=== PATIENT | male | born 1935 ===

== ENCOUNTER 2016-08-30 21:22 | Emergency (ER) | payer MEDICARE, OTHER ==
[2016-08-30 21:58] VITALS: BP 128/55
--- NOTE | 2016-08-31 00:11 | EDM.PDOC ---
ED HPI GENERAL MEDICAL PROBLEM - General Chief Complaint: Head Injury Stated Complaint: FELL HIT HEAD Time Seen by Provider: 08/30/16 21:22 Source of Information: Reports: Patient, Family History Limitations: Reports: No Limitations - History of Present Illness Onset: Today Onset Date: 08/30/16 Onset Time: 17:30 Duration: Constant Location: Reports: Head, Generalized Quality: Reports: Other (Has worsening balance and a headache from passing out and hitting back of head.) Severity: Moderate Improves with: Reports: None Worsens with: Reports: None Context: Reports: Trauma Associated Symptoms: Reports: Syncope - Related Data Allergies Allergy/AdvReac Type Severity Reaction Status Date / Time piperacillin [From Zosyn] Allergy Other Verified 08/30/16 21:44 sulfamethoxazole Allergy Other Verified 08/30/16 21:44 [From Bactrim] tazobactam [From Zosyn] Allergy Other Verified 08/30/16 21:44 trimethoprim [From Bactrim] Allergy Other Verified 08/30/16 21:44 Home Meds: Home Meds Acetaminophen 2 tab PO DAILY PRN 08/30/16 [History] Aspirin 81 mg PO DAILY 08/30/16 [History] Calcium Carbonate/Vitamin D3 [Calcium 500 + Vit D Caplet] 1 tab PO DAILY [History] Ferrous Sulfate 325 mg PO DAILY 08/30/16 [History] Gabapentin [Neurontin] 100 mg PO BID 08/30/16 [History] Insulin Aspart [Novolog Flexpen] 12 units SUBCUT TID 08/30/16 [History] Insulin Glarg,Human.Rec.Analog [LantUS Solostar] 70 unit SUBCUT DAILY 08/30/16 [ History] Metoprolol Tartrate 100 mg PO BID 08/30/16 [History] Simvastatin [Zocor] 40 mg PO DAILY 08/30/16 [History] metFORMIN [Glucophage] 1,000 mg PO BIDMEALS 08/30/16 [History] oxyCODONE 5 mg PO Q4H 08/30/16 [History] Past Medical History HEENT History: Reports: Hard of Hearing, Impaired Vision Cardiovascular History: Reports: High Cholesterol, Hypertension Respiratory History: Reports: Pneumonia, Recurrent Endocrine/Metabolic History: Reports: Diabetes, Type II - Infectious Disease History Infectious Disease History: Reports: Chicken Pox, Measles - Past Surgical History Cardiovascular Surgical History: Reports: Coronary Artery Bypass Respiratory Surgical History: Reports: None Social & Family History - Family History Family Medical History: Noncontributory - Tobacco Use Smoking Status *Q: Never Smoker - Caffeine Use Caffeine Use: Reports: None - Recreational Drug Use Recreational Drug Use: No ED ROS GENERAL - Review of Systems Review Of Systems: See Below Constitutional: Reports: Other (Headache and worsening balance and dizzyness. No vertigo.) HEENT: Reports: No Symptoms Respiratory: Reports: No Symptoms Cardiovascular: Reports: No Symptoms Endocrine: Reports: No Symptoms GI/Abdominal: Reports: No Symptoms : Reports: No Symptoms Musculoskeletal: Reports: No Symptoms Skin: Reports: No Symptoms Neurological: Reports: Dizziness, Syncope, Difficulty Walking, Gait Disturbance Psychiatric: Reports: No Symptoms Hematologic/Lymphatic: Reports: No Symptoms Immunologic: Reports: No Symptoms ED EXAM, HEAD INJURY - Physical Exam Exam: See Below Exam Limited By: No Limitations General Appearance: Alert Head: Scalp Swelling, Scalp Tenderness (In back of head where he hit his head when he fell.) Nexus Criteria: No: Posterior, Midline Cervical Tenderness, Evidence of Intoxication, Altered Level of Consciousness, Focal Neurological Deficit, Painful Distraction Injuries Eyes: Bilateral Eye: Normal Fundi, Normal Inspection Ears: Normal External Exam, Normal Canal, Hearing Grossly Normal, Other ( Hearing aids in bilaterally.) Nose: Normal Inspection, Normal Mucousa, No Blood Throat/Mouth: Normal Inspection, Normal Lips, Normal Teeth, Normal Gums, Normal Oropharynx, Normal Voice, No Airway Compromise Neck: Non-Tender Respiratory: No Respiratory Distress, Lungs Clear, Normal Breath Sounds, No Accessory Muscle Use, Chest Non-Tender Cardiovascular: Normal Peripheral Pulses, Regular Rate, Rhythm, No Edema, No Gallop, No JVD, No Murmur, No Rub GI/Abdominal Exam (Abbreviated): Normal Bowel Sounds, Soft, Non-Tender, No Organomegaly, No Distention, No Abnormal Bruit, No Mass Back Exam: Full Range of Motion, Normal Inspection, NT Extremities: No Evidence of Injury, Normal Range of Motion, Non-Tender, Other ( 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 He had no worsening symptoms. [place] said that proper transfer should be to [place] for Interventional Neuroradiologist but patient lives in [place], [place] and has all of his care at the [facility] in [place] and felt if he needed to get on an airplane that he would like to be in [facility] for acute evaluation and any Physical Medicine and Rehabilitation that would be needed post stroke. Last Recorded V/S: Last Vital Signs Temp 37.1 C 08/30/16 21:22 Pulse 60 08/30/16 21:22 Resp 12 08/30/16 21:22 BP 128/55 L 08/30/16 21:22 Pulse Ox 99 08/30/16 21:22 - Orders/Labs/Meds Orders: Active Orders 24 hr Category Date Time Status EKG Documentation Completion [RC] ASDIRECTED Care 08/30/16 21:54 Active Cervical Spine wo Cont [CT] Stat Exams 08/30/16 21:30 Taken Head wo Cont [CT] Stat Exams 08/30/16 21:30 Taken Labs: Laboratory Tests 08/30/16 08/30/16 08/30/16 Range/Units 22:10 22:10 22:15 WBC 8.5 (4.0-11.0) K/uL RBC 4.19 L (4.50-6.50) M/uL Hgb 13.3 (13.0-18.0) g/dL Hct 38.4 L (40.0-54.0) % MCV 92 (76-96) fL MCH 31.7 (27.0-32.0) pg MCHC 34.6 (31.0-35.0) g/dL RDW 13.4 (11.0-16.0) % Plt Count 220 (150-400) K/uL MPV 10.3 H (6.0-10.0) fL Neut % (Auto) 75.6 H (45.0-70.0) % Lymph % (Auto) 17.9 L (20.0-40.0) % [place] % (Auto) 5.7 (3.0-10.0) % Eos % (Auto) 0.6 L (1.0-5.0) % Baso % (Auto) 0.2 (0.0-0.5) % Neut # (Auto) 6.40 (2.00-7.50) K/uL Lymph # (Auto) 1.52 (1.50-4.00) K/uL Edgar # (Auto) 0.48 (0.20-0.80) K/uL Eos # (Auto) 0.05 (0.04-0.40) K/uL Baso # (Auto) 0.02 (0.02-0.10) K/uL PT 10.5 (9.0-11.5) sec INR 1.0 (1.0-3.5) APTT 27.0 (27.0-35.0) SECONDS Sodium 134 L (136-145) mmol/L Potassium 5.0 (3.5-5.1) mmol/L Chloride 98 (98-107) mmol/L Carbon Dioxide 27.2 (21.0-32.0) mmol/L Anion Gap 13.8 (5.0-15.0) mmol/L BUN 23 (8-26) mg/dL Creatinine 1.14 (0.70-1.30) mg/dL Est Cr Clr Drug Dosing TNP Estimated GFR (MDRD) > 60 (>60) MLS/MIN BUN/Creatinine Ratio 20.2 (6-25) Glucose 214 H (74-100) mg/dL Calcium 8.7 (8.5-10.1) mg/dL Total Bilirubin 0.4 (0.0-1.0) mg/dL AST 17 (15-37) U/L ALT 17 (12-78) U/L Alkaline Phosphatase 64 (46-116) U/L Troponin I < 0.017 (0.000-0.060) ng/mL Total Protein 7.2 (6.4-8.2) g/dL Albumin 3.3 L (3.4-5.0) g/dL Globulin 3.9 (2.2-4.2) g/dL Albumin/Globulin Ratio 0.9 (0.8-2.0) Departure - Departure Time of Disposition: 23:59 Disposition: DC/Tfer to Acute Hospital 02 Condition: Good Clinical Impression: Stroke (cerebrum) - Discharge Information Referrals: PCP,None [Ordering Only Provider] - Forms: ED Department Discharge - My Orders Last 24 Hours: My Active Orders 08/30/16 21:30 Cervical Spine wo Cont [CT] Stat Head wo Cont [CT] Stat 08/30/16 21:54 EKG Documentation Completion [RC] ASDIRECTED - Assessment/Plan Last 24 Hours: My Active Orders 08/30/16 21:30 Cervical Spine wo Cont [CT] Stat Head wo Cont [CT] Stat 08/30/16 21:54 EKG Documentation Completion [RC] ASDIRECTED
--- NOTE | 2016-08-31 10:27 | CT ---
DATE OF SERVICE: 08/30/16 CLINICAL DATA: fainted UNENHANCED BRAIN CT Multislice acquisition through the brain without IV contrast was performed. No priors. There is diffuse cerebral atrophy. There are periventricular lucencies bilaterally consistent with small-vessel ischemic change. There is an area of encephalomalacia in the left posterior parietal region consistent with a prior infarct. No masses or mass effect. No intracranial hemorrhage. No evidence of acute infarct. No osseous abnormalities. [id number] [facility]
--- NOTE | 2016-08-31 10:31 | CT ---
DATE OF SERVICE: 08/30/16 CLINICAL DATA: fainted CERVICAL SPINE CT Multislice axial acquisition was performed. Axial images and sagittal and coronal reformations are reviewed. I do not see an acute fracture or dislocation. There is 3 to 4 mm anterolisthesis of C4 on C5 and slight anterolisthesis fo C3 on C4. There is degenerative disk disease at multiple levels, greatest at the C5-C6 and C6-C7 levels. There is facet joint hypertrophy throughout the cervical spine. The soft tissues are unremarkable. IMPRESSION: No acute abnormalities. [id number] [facility]
== END 2016-08-31 00:19 ==
LOC: LB.ED 21:22 → EDBD 21:22 → LB.ED 08-31 00:19
DX: I63.9 Cerebral infarction, unspecified (principal); H54.7 Unspecified visual loss; E78.00 Pure hypercholesterolemia, unspecified; I10 Essential (primary) hypertension; E11.9 Type 2 diabetes mellitus without complications; Z87.01 Personal history of pneumonia (recurrent); Z95.1 Presence of aortocoronary bypass graft; Z88.2 Allergy status to sulfonamides; Z88.8 Allergy status to other drugs, medicaments and biological substances; Z79.82 Long term (current) use of aspirin; Z79.899 Other long term (current) drug therapy; Z79.4 Long term (current) use of insulin
CPT/HCPCS: 36415; 70450; 72125; 80053; 84484; 85025; 85610; 85730; 93005; 99285; A0425; A0429; 99284